=== PATIENT | female | born 1950 | race Caucasian/White ===

== ENCOUNTER 2021-05-15 00:54 | Outpatient (CLI) | payer MEDICARE, SELFPAY ==
--- NOTE | 2021-05-15 08:00 | DI.MRI_ITS ---
Exam(s) MR IAC BRAIN WO/W EXAM: MR IAC BRAIN WO/W CLINICAL HISTORY: assymetric sn hearing loss,n90.5 TECHNIQUE: MR examination of the brain was performed according to the usual protocol with additiona l multiplanar high-resolution pre and post contrast imaging the posterior fossa. Whole brain axial T 1 weighted imaging was also obtained post contrast. COMPARISON: No exams were available for comparison FINDINGS: The ventricular system is normal in appearance. There is no mass lesion or enhancing lesion in the b rain. There are scattered areas of periventricular signal abnormality seen on T2 weighted and FLAIR imaging consistent with microvascular ischemic changes.. Diffusion-weighted imaging shows no diffusion restriction to suggest cerebral infarction. Susceptibility weighted imaging shows no evidence of intracranial hemorrhage. The orbital and temporal bone structures appear intact. The pituitary appears intact. There is normal flow void in the [id number] vasculature. Imaging of the posterior fossa region shows no abnormality of the cerebellum or boom. The internal a uditory canals and inner and middle ear structures appear normal. There is no mass lesion or enhanci ng lesion. IMPRESSION: Mild white matter signal changes consistent with microvascular ischemic process. Otherwise negative brain MRI with attention to the posterior fossa structures as described above. No mass lesion or enh ancing lesion. RADIATION DOSE DELIVERED: Total DLP
[2021-05-15 14:06] LABS: CREATININE 0.8 mg/dL (0.55-1.02)
[2021-05-15] MEDS: Gadoterate meglumine 20 ML VIAL IVP (14:14)
[2021-05-15] MEDS: Normal Saline Flush 10 ML SYR IVP (14:15)
== END 2021-05-15 01:14 ==
PROVIDERS: PCP Internal Medicine; Visit Provider Otolaryngology
DX: H90.5 Unspecified sensorineural hearing loss (principal)
CPT/HCPCS: 70553; 82565